=== PATIENT | male | born 2000 | race Hispanic/Latino ===

== ENCOUNTER 2021-10-07 21:46 | Emergency (ER) | payer SELFPAY ==
[2021-10-07] MEDS ORDERED: ONDANSETRON 4 MG (ODT) TAB ONE (23:28)
[2021-10-07] MEDS ORDERED: LIDOCAINE VISCOUS 2% SOLN 15 ML UDC ONE (23:29)
[2021-10-07] MEDS ORDERED: MAGNES/ALUMIN/SIMET 30ML UCUP ONE (23:29)
--- NOTE | 2021-10-08 00:47 | ER ---
Nurse's Notes [facility] Name: Lee Tariq Age: 20 yrs Sex: Male : 2000 Arrival Date: 10/07/2021 Time: 21:47 Bed 12 Private MD: Diagnosis: Contact with and (suspected) exposure to hazardous, chiefly nonmedicinal, chemicals;Acute laryngopharyngitis Presentation: 10/07 21:53 Chief complaint: EMS states: patient was exposed to vinyl chloride gas and HCL gas but bb "just got a whiff". Coronavirus screen: At this time, the client does not indicate any symptoms associated with coronavirus-19. Ebola Screen: No symptoms or risks identified at this time. Initial Sepsis Screen: Does the patient meet any 2 criteria? No. Patient's initial sepsis screen is negative. Does the patient have a suspected source of infection? No. Patient's initial sepsis screen is negative. Risk Assessment: Do you want to hurt yourself or someone else? Patient reports no desire to harm self or others. Onset of symptoms was October 07, 2021. 21:53 Method Of Arrival: EMS: [facility] bb 21:53 Acuity: KINJAL 2 bb 22:15 Note Poison Control contacted recommendations as follows: baseline chest Xray, bb symptomatic treatment. Historical: - Allergies: 21:55 No Known Allergies; bb - Home Meds: 21:55 None [Active]; bb - PMHx: 21:55 None; bb - PSHx: 21:55 None; bb - Immunization history:: Client reports having NOT received the Covid vaccine. - Social history:: Smoking status: Patient denies any tobacco usage or history of. Screenin:55 Abuse screen: Denies threats or abuse. Nutritional screening: No deficits noted. bb Tuberculosis screening: No symptoms or risk factors identified. Fall Risk None identified. Assessment: 21:55 General: Appears uncomfortable, obese, Behavior is cooperative, anxious. Pain: Denies bb pain. Neuro: Level of Consciousness is awake, alert, obeys commands, Oriented to person, place, time, situation. Cardiovascular: Capillary refill < 3 seconds Patient's skin is warm and dry. Respiratory: Respiratory effort is even, unlabored, Respiratory pattern is regular, Breath sounds are clear bilaterally. GI: No signs and/or symptoms were reported involving the gastrointestinal system. EENT: Reports burning in throat. Derm: Skin is pink, warm \\T\\ dry. Musculoskeletal: Circulation, motion, and sensation intact. 22:37 Reassessment: Patient is alert, oriented x 3, equal unlabored respirations, skin al4 warm/dry/pink. 23:29 Reassessment: Patient and/or family updated on plan of care and expected duration. Pain al4 level reassessed. Mother at bedside. . 10/08 00:06 Reassessment: Patient is alert, oriented x 3, equal unlabored respirations, skin al4 warm/dry/pink. Patient states feeling better. Patient states symptoms have improved. Patient ambulating to restroom. . 01:00 Reassessment: Patient is alert, oriented x 3, equal unlabored respirations, skin al4 warm/dry/pink. Patient states feeling better. Vital Signs: 10/07 21:53 BP 144 / 95; Pulse 115; Resp 20 S; Temp 98.4(O); Pulse Ox 99% on R/A; Weight 145.15 kg bb (R); Height 5 ft. 10 in. (177.80 cm) (R); Pain 0/10; 23:21 BP 127 / 81; Pulse 105; Resp 20; Temp 97.8; Pulse Ox 99% ; al4 10/08 00:18 BP 136 / 76; Pulse 104; Resp 20; Pulse Ox 98% ; Pain 0/10; al4 10/07 21:53 Body Mass Index 45.91 (145.15 kg, 177.80 cm) bb ED Course: 10/07 21:47 Patient arrived in ED. wm 21:53 Apolinar Ellsworth PA is PHCP. cp 21:53 Ace Ferrer MD is Attending Physician. cp 21:55 Triage completed. bb 21:55 Arm band placed on Patient placed in an exam room, on a stretcher, on pulse oximetry. bb 21:55 Patient has correct armband on for positive identification. Placed in gown. Bed in low bb position. Call light in reach. Pulse ox on. NIBP on. 22:10 Jerel Mayer is Primary Nurse. al4 22:51 XRAY Chest (1 view) In Process Unspecified. EDMS 10/08 01:00 No provider procedures requiring assistance completed. Patient did not have IV access al4 during this emergency room visit. Administered Medications: 10/07 23:53 Drug: GI Cocktail without - (Maalox Suspension 30 ml, Lidocaine Liquid 2 % 15 al4 ml) Route: PO; 10/08 00:19 Follow up: Response: No adverse reaction; Marked relief of symptoms al4 10/07 23:53 Drug: Zofran (Ondansetron) 4 mg Route: PO; al4 10/08 00:19 Follow up: Response: No adverse reaction; Marked relief of symptoms al4 Outcome: 00:47 Discharge ordered by . nora 01:00 Discharged to home ambulatory. al4 01:00 Condition: stable 01:00 Discharge instructions given to patient, Instructed on discharge instructions, follow up and referral plans. medication usage, Demonstrated understanding of instructions, follow-up care, medications. 01:01 Patient left the ED. al4 Signatures: Dispatcher [employer] EDMounika Stone RN RN bb Page, Corey, PA PA cp Marsh, Wendy wm Ledbetter, Alexis al4
--- NOTE | 2021-10-08 00:47 | EDPHYS ---
Physician Documentation [facility] Name: Lee Tariq Age: 20 yrs Sex: Male : 2000 Arrival Date: 10/07/2021 Time: 21:47 Bed 12 Private MD: ED Physician Ace Ferrer HPI: 10/07 22:15 This 20 yrs old Male presents to ER via EMS with complaints of Gas Exposure. cp 22:15 Type of Exposure: potential inhalation, a chemical, a "whiff" of vinyl chloride and cp HCL. Context: The problem was sustained at work. Onset: The symptoms/episode began/occurred just prior to arrival, today. Symptoms: shortness of breath, burning of chest and throat. 22:15 Patient given Albuterol NEB treatment by EMS prior to arrival. cp Historical: - Allergies: 21:55 No Known Allergies; bb - Home Meds: 21:55 None [Active]; bb - PMHx: 21:55 None; bb - PSHx: 21:55 None; bb - Immunization history:: Client reports having NOT received the Covid vaccine. - Social history:: Smoking status: Patient denies any tobacco usage or history of. ROS: 22:20 Constitutional: Negative for body aches, chills, fever, poor PO intake. cp 22:20 Eyes: Negative for injury, pain, redness, and discharge. cp 22:20 ENT: Positive for burning of throat, Negative for drainage from ear(s), ear pain, difficulty swallowing, difficulty handling secretions. 22:20 Cardiovascular: Positive for burning of chest, Negative for edema, palpitations. 22:20 Respiratory: Positive for shortness of breath, at rest. Negative for cough, wheezing. 22:20 Abdomen/GI: Negative for abdominal pain, nausea, vomiting, and diarrhea. 22:20 Skin: Negative for rash. 22:20 Neuro: Negative for altered mental status, headache, numbness, syncope, weakness. 22:20 All other systems are negative. Exam: 22:30 Constitutional: The patient appears in no acute distress, alert, awake, cp non-diaphoretic, non-toxic, well developed, well nourished, obese. 22:30 Head/Face: Normocephalic, atraumatic. cp 22:30 Eyes: Periorbital structures: appear normal, Conjunctiva: normal, no exudate, no injection, Sclera: no appreciated abnormality, Lids and lashes: appear normal, bilaterally. 22:30 ENT: External ear(s): are unremarkable, Nose: is normal, Mouth: Lips: moist, Oral mucosa: moist, Posterior pharynx: Airway: no evidence of obstruction, patent, Tonsils: no enlargement, no exudate, Uvula: midline, swelling, is not appreciated, erythema, that is mild, exudate, is not appreciated. 22:30 Neck: ROM/movement: is normal, is supple, without pain, no range of motions limitations. 22:30 Chest/axilla: Inspection: normal. 22:30 Cardiovascular: Rate: tachycardic, Rhythm: regular, Edema: is not appreciated, JVD: is not appreciated. 22:30 Respiratory: the patient does not display signs of respiratory distress, Respirations: normal, no use of accessory muscles, no retractions, labored breathing, is not present, Breath sounds: are clear throughout, no decreased breath sounds, no stridor, no wheezing. 22:30 Abdomen/GI: Inspection: abdomen appears normal, Palpation: abdomen is soft and non-tender, in all quadrants. 22:30 Skin: no rash present. 22:30 Neuro: Orientation: to person, place \\T\\ time. Mentation: is normal, Motor: moves all fours, strength is normal. 22:37 ECG was reviewed by the Attending Physician. Vital Signs: 21:53 BP 144 / 95; Pulse 115; Resp 20 S; Temp 98.4(O); Pulse Ox 99% on R/A; Weight 145.15 kg bb (R); Height 5 ft. 10 in. (177.80 cm) (R); Pain 0/10; 23:21 BP 127 / 81; Pulse 105; Resp 20; Temp 97.8; Pulse Ox 99% ; al4 10/08 00:18 BP 136 / 76; Pulse 104; Resp 20; Pulse Ox 98% ; Pain 0/10; al4 10/07 21:53 Body Mass Index 45.91 (145.15 kg, 177.80 cm) bb MDM: 10/07 21:54 Patient medically screened. 10/08 00:46 Data reviewed: vital signs, nurses notes, radiologic studies, plain films. cp 00:46 Test interpretation: by ED physician or midlevel provider: plain radiologic studies. cp Counseling: I had a detailed discussion with the patient and/or guardian regarding: the historical points, exam findings, and any diagnostic results supporting the discharge/admit diagnosis, radiology results, the need for outpatient follow up, a family practitioner, to return to the emergency department if symptoms worsen or persist or if there are any questions or concerns that arise at home. Response to treatment: the patient's symptoms have markedly improved after treatment. ED course: VSS. No signs of respiratory distress and patient appears non-toxic. Patient reports symptoms markedly improved with meds. Poison Control consulted and recommended baseline chest xray and monitoring of symptoms. Will discharge to home for continued monitoring. 10/07 22:10 Order name: XRAY Chest (1 view) cp 10/07 22:33 Order name: EKG; Complete Time: 22:33 cp 10/07 22:33 Order name: EKG - Nurse/Tech; Complete Time: 22:36 cp EC/17 22:37 Rate is 110 beats/min. Rhythm is regular. TN interval is normal. QRS interval is cp normal. QT interval is normal. T waves are Inverted in lead aVR. Interpreted by me. Reviewed by me. Administered Medications: 23:53 Drug: GI Cocktail without - (Maalox Suspension 30 ml, Lidocaine Liquid 2 % 15 al4 ml) Route: PO; 10/08 00:19 Follow up: Response: No adverse reaction; Marked relief of symptoms al4 10/07 23:53 Drug: Zofran (Ondansetron) 4 mg Route: PO; al4 10/08 00:19 Follow up: Response: No adverse reaction; Marked relief of symptoms al4 Disposition: 07:38 Co-signature as Attending Physician, Ace Ferrer MD I agree with the assessment and kdr plan of care. Disposition Summary: 10/08/21 00:47 Discharge Ordered Location: Home cp Problem: new cp Symptoms: have improved cp Condition: Stable cp Diagnosis - Contact with and (suspected) exposure to hazardous, chiefly nonmedicinal, chemicals cp - Acute laryngopharyngitis cp Followup: cp - With: Private Physician - When: 1 - 2 days - Reason: Recheck today's complaints Discharge Instructions: - Discharge Summary Sheet cp - Sore Throat cp - Chemical Inhalation Injury, Adult cp Forms: - Medication Reconciliation Form cp - Thank You Letter cp - Antibiotic Education cp - Prescription Opioid Use cp Prescriptions: - Lidocaine Viscous - take 5 milliliter by ORAL route every 4-6 hours As needed; 1 bottle; Refills: cp 0, Product Selection Permitted Signatures: Dispatcher [employer] Ace Perales MD MD kdr Ballard, Brenda RN RN bb Apolinar Ellsworth PA PA cp Ledbetter, Alexis al4
[2021-10-08 02:44] VITALS: TEMP 97.8
[2021-10-08 02:45] VITALS: BP 136/76; O2SAT 98
--- NOTE | 2021-10-08 12:01 | RAD REPORT ---
EXAM DESCRIPTION: RAD - Chest Single View - 10/07/2021 10:51 pm CLINICAL HISTORY: 20 years Male, chemical exposure COMPARISON: None. FINDINGS: Low lung volumes accentuating the cardiomediastinal silhouette. No focal consolidation, pneumothorax or pleural effusion. Osseous structures are unremarkable. IMPRESSION: No acute radiographic abnormality. Electronically signed by: Kieran Enciso MD 10/07/2021 11:25 PM CDT Due to temporary technical issues with the PACS/Fluency reporting system, reports are being signed by the in house radiologist without review as a courtesy to ensure prompt reporting. The interpreting r adiologist is fully responsible for the content of the report.
--- NOTE | 2021-10-11 08:28 | EKG ---
Test Date: 2021-10-07 Test Time: 22:30:19 Motor Winder: EDGARD MEASUREMENT RESULTS: Intervals: Rate: 110 PA: 142 QRSD: 100 QT: 342 QTc: 462 [place]: P: 34 PA: 142 QRS: 81 T: 30 INTERPRETIVE STATEMENTS: Sinus tachycardia Possible Lateral infarct, age undetermined Abnormal ECG No previous ECG available for comparison Electronically Signed On 10-11-21 08:22:56 CDT by Koby Larson
== END 2021-10-08 01:01 | disposition home or self-care (01) ==
LOC: ER 21:46
DX: J06.0 Acute laryngopharyngitis (principal); Z77.098 Contact with and (suspected) exposure to other hazardous, chiefly nonmedicinal, chemicals
CPT/HCPCS: 71045; 93005; 99284